=== PATIENT | female | born 1975 | race Caucasian/White ===

== ENCOUNTER 2025-04-17 17:14 | Emergency (ER) | payer BC ==
[2025-04-17] MEDS: Diphtheria,Pertussis(Acell),Tetanus Vaccine 0.5 ML Syringe IM ONE (18:01)
== END 2025-04-17 18:12 | disposition home or self-care (01) ==
LOC: JD.ED 17:14
DX: S51.852A Open bite of left forearm, initial encounter (principal); S31 Open wound of abdomen, lower back, pelvis and external genitals; Z23 Encounter for immunization; W54.0XXA Bitten by dog, initial encounter
CPT/HCPCS: 90471; 90715; 99283; 99283-25